=== PATIENT | male | born 1990 | race Hispanic/Latino ===

== ENCOUNTER 2023-11-03 08:59 | Emergency (ER) | payer SELFPAY ==
[2023-11-03] MEDS: Ketorolac 30 MG/ML SDV IVPUSH ONE (09:45)
[2023-11-03] MEDS: Sodium Chloride 0.9% 10 ML Syringe FLUSH PRN (09:45)
[2023-11-03] MEDS: Sodium Chloride 0.9% 2.5 ML Syringe FLUSH PRN (09:46)
[2023-11-03] MEDS: HYDROmorphone 1 MG/ML Syringe IVPUSH ONE ×2 (10:34→13:47)
[2023-11-03 11:02] LABS: BASOPHILS ABSOLUTE AUTO 0.07 K/uL (0.00-0.20); EOSINOPHILS ABSOLUTE AUTO 0.19 K/uL (0.00-0.45); EOSINOPHILS PERCENT AUTO 2.6 % (0.0-6.0); HEMATOCRIT 49.1 % (42.0-52.0); HEMOGLOBIN 17.1 g/dL (14.0-18.0); IMMATURE GRAN ABSOLUTE AUTO 0.11 K/uL (0.00-0.05); IMMATURE GRAN PERCENT AUTO 1.5 % (0.0-0.4); LYMPHOCYTES ABSOLUTE AUTO 2.52 K/uL (1.00-4.80); LYMPHOCYTES PERCENT AUTO 34.3 % (24.0-44.0); MEAN CORPUSCULAR HGB CONC 34.8 g/dL (32.0-36.0); MEAN CORPUSCULAR VOLUME 91.8 fL (83.0-99.0); MEAN PLATELET VOLUME 9.6 fL (9.4-12.4); MONOCYTES ABSOLUTE AUTO 0.64 K/uL (0.00-0.80); MONOCYTES PERCENT AUTO 8.7 % (0.0-8.0); NEUTROPHILS ABSOLUTE AUTO 3.82 K/uL (1.80-7.70); NEUTROPHILS PERCENT AUTO 51.9 % (41.0-71.0); PLATELET COUNT,PLT 142 K/uL (150-400); RED BLOOD CELL COUNT 5.35 M/uL (4.52-5.90); WHITE BLOOD CELL COUNT,WBC 7.35 K/uL (3.9-11.3)
[2023-11-03 11:36] LABS: A/G RATIO 0.8 (0.9-1.6); ALBUMIN 3.4 g/dL (3.4-5.0); BILIRUBIN TOTAL 1.2 mg/dL (0.2-1.0); CALCIUM 8.6 mg/dL (8.5-10.1); CARBON DIOXIDE,CO2 23.8 mmol/L (21.0-32.0); CREATININE 1.1 mg/dL (0.8-1.3); EST CRCL DRUG DOSING (CG) 85.39 mL/min; POTASSIUM,K 3.9 mmol/L (3.5-5.1); PROTEIN TOTAL,TP 7.9 g/dL (6.4-8.2)
[2023-11-03] MEDS: Iopamidol 755 MG/ML 500 ML Multipack Bottle IVPUSH STA (12:26)
== END 2023-11-03 15:16 | disposition home or self-care (01) ==
LOC: MW.ED 08:59
DX: M54.10 Radiculopathy, site unspecified (principal); Z75.8 Other problems related to medical facilities and other health care; Z79.899 Other long term (current) drug therapy
CPT/HCPCS: 36415; 74177; 80053; 83690; 85025; 96374; 96375; 96376; 99284; J1170; J1885; J3490; Q9967; 72131; 72131-26

== ENCOUNTER 2024-03-25 06:13 | Emergency (ER) | payer BC ==
[2024-03-25] MEDS: Ketorolac 30 MG/ML SDV IM ONE (06:33)
[2024-03-25 06:46] LABS: APPEARANCE,URINE CLEAR; BILIRUBIN,URINE NEGATIVE (NEGATIVE); COLOR,URINE YELLOW; GLUCOSE,URINE >=1000 mg/dL (NEGATIVE); KETONES,URINE NEGATIVE (NEGATIVE); LEUKOCYTE ESTERASE,URINE NEGATIVE (NEGATIVE); NITRITE,URINE NEGATIVE (NEGATIVE); OCCULT BLOOD,URINE SMALL (NEGATIVE); PROTEIN,URINE 30 mg/dL (NEGATIVE)
[2024-03-25 06:57] LABS: BACTERIA,URINE FEW (NEGATIVE); EPITHELIAL CELLS,URINE FEW (NONE-FEW); WBC,URINE 0-1 (0-5/HPF)
== END 2024-03-25 07:33 | disposition home or self-care (01) ==
LOC: MW.ED 06:13
DX: R30.0 Dysuria (principal); R20.2 Paresthesia of skin
CPT/HCPCS: 81001; 96372; 99284; J1885

== ENCOUNTER 2024-04-15 04:11 | Emergency (ER) | payer BC ==
[2024-04-15] MEDS: Lidocaine 2% 11 ML Jelly Filled Syringe MUCMEM STA (04:42)
[2024-04-15 04:53] LABS: APPEARANCE,URINE CLEAR; BILIRUBIN,URINE NEGATIVE (NEGATIVE); COLOR,URINE YELLOW; GLUCOSE,URINE 500 mg/dL (NEGATIVE); KETONES,URINE NEGATIVE (NEGATIVE); LEUKOCYTE ESTERASE,URINE NEGATIVE (NEGATIVE); NITRITE,URINE NEGATIVE (NEGATIVE); OCCULT BLOOD,URINE TRACE-INTACT (NEGATIVE); PROTEIN,URINE NEGATIVE (NEGATIVE)
[2024-04-15 05:05] LABS: EPITHELIAL CELLS,URINE RARE (NONE-FEW); WBC,URINE 0-2 (0-5/HPF)
[2024-04-15 05:06] LABS: BACTERIA,URINE FEW (NEGATIVE)
[2024-04-15 06:22] LABS: C. TRACHOMATIS BY PCR NOT DETECTED; N. GONORRHOEAE BY PCR NOT DETECTED
== END 2024-04-15 06:39 | disposition home or self-care (01) ==
LOC: MW.ED 04:11
DX: N48.1 Balanitis (principal)
CPT/HCPCS: 81001; 87491; 87591; 99284; A9270